=== PATIENT | female | born 1955 | race American Indian/Alaskan Native ===

== ENCOUNTER 2020-04-22 07:00 | Outpatient (CLI) | payer MEDICARE, OTHER ==
[2020-04-22 08:33] LABS: Blood Urea Nitrogen 18 mg/dL (7-17)
[2020-04-22] MEDS ORDERED: NITROGLYCERIN 0.4 MG TAB SUBL SL ONE (09:14)
[2020-04-22] MEDS ORDERED: ATROPINE 0.1% (1 MG/10 ML) CARDIAC SYRINGE ONE (09:48)
[2020-04-22] MEDS ORDERED: METOPROLOL TARTRATE 5 MG/5 ML INJ IV ONE (09:48)
[2020-04-22 10:11] VITALS: BP 131/77
--- NOTE | 2020-04-26 07:54 | CT Calcium Scoring Report ---
Coronary Calcium Score Date of service: 04/26/20 Procedure: High-resolution computed tomographic imaging of the chest was performed on04/22/20 with particular attention paid to the coronary arteries. Images from the examination were analyzed for the presence and extent of coronary artery calcification, using coronary calcium quantification software. The patient tolerated the procedure well and there were no complications. The results of the coronary calcification analysis are provided below. The patient scores are compared with published data related to scores for people of a similar age and the same gender. - Findings Total Agatson Score: 0 Findings: Cardiac CTA Indication: chest pain Informed consent obtained Procedure: The patient was brought to the cardiac ct laboratory at [facility] in stable condition after a 4 hour fast. Heart rate was regulated by beta blockade. Sublingual ngt was administered. After data acquisition and reconstruction, the images were processed and reviewed on the computer workstation. Multiple phases of the cardiac cycle were assessed for image interpretation. Volume rendered images, multiplanar reformated images, and maximum intensity projections images were generated and reviewed A coronary calcium score was performed via the Agatston method. A separate radiology assessment of the non cardiac structures in the field of view will be provided. Superior vena cava in the field of view appears normal Inferior vena cava in the filed of view appears normal Ascending aorta in the field of view appears normal Descending aorta in the field of view appears normal Pulmonary artery in the filed of view appears normal Pulmonary veins enter the left atrium appropriately Left ventricle appears normal Right Ventricle appears normal Left atrium appears normal Left atrial appendage appears normal Right atrium appears normal Interventricular septum appears normal Interatrial septum appears normal Aortic valve appears normal Mitral Valve appears normal Intracardiac mass: none Pericardial effusion: none Coronary Angiography: Dominance: right Origins: normal Left main: normal Left anterior descending coronary artery and diagonal branches: potentially significant 50-75% proximal non calcific stenosis Circumflex coronary artery and obtuse marginal branches: normal Right coronary artery: normal the procedure was tolerated well. there were no procedural complications
== END 2020-04-22 10:30 | disposition home or self-care (01) ==
LOC: CATHLABREC 07:00
PROVIDERS: ATTEND Specialist
DX: R07.89 Other chest pain (principal); E78.00 Pure hypercholesterolemia, unspecified; I10 Essential (primary) hypertension; Z87.891 Personal history of nicotine dependence; Z79.899 Other long term (current) drug therapy; Z79.84 Long term (current) use of oral hypoglycemic drugs
CPT/HCPCS: 36415; 75574; 82565; 84520; Q9967; J0461